=== PATIENT | female | born 1975 | race Caucasian/White ===

== ENCOUNTER 2018-08-14 11:57 | Emergency (ER) | payer SELFPAY ==
[~2018-08-14] VITALS: Ht 162.6 cm; Wt 88.5 kg
--- OUTSIDE RECORDS SUMMARY | 2018-08-14 12:11 | XMS REPORT | Continuity of Care Document ---
Author Organization Unknown Address Unknown Allergies There is no data. Medications There is no data. Problems There is no data. Procedures There is no data. Results There is no data. Encounters ACCT No. Visit Date/Time Discharge Status Pt. Type Provider Facility Loc./Unit Complaint [id number] 08/02/2018 15:00:00 08/02/2018 23:59:59 [facility] Outpatient [facility]
[2018-08-14] MEDS ORDERED: DIAZEPAM 5 MG (12:26)
[2018-08-14] MEDS ORDERED: HYDROCO (12:26)
[2018-08-14] MEDS ORDERED: APAP (12:26)
[2018-08-14] MEDS ORDERED: LACTATED RINGERS 1,000 ML IV ONE (12:48)
--- NOTE | 2018-08-14 12:55 | ED Abdominal Pain ---
General Chief Complaint: Abdominal/GI Problems Stated Complaint: RECTAL BLEEDING, ABD PAIN Nursing Triage Note: PT AMB TO RM 6 WITH COMPLAINT OF ABD PAIN AND BLOOD IN STOOL. PT STATES SHE STARTED HAVING BLOODY DIARRHEA LAST NIGHT. PT STATES SHE HAS DIVERTICULOSIS AND ATE A BAG OF POPCORN 2 DAYS AGO. STATES SHE WAS SENT BY [facility] IN [place] Sepsis Screen: No Definite Risk Source of Information: Patient, Family (mom) Exam Limitations: No Limitations History of Present Illness Date Seen by Provider: August 14, 2018 Time Seen by Provider: 12:35 Initial Comments Late last night she was awoken from sleep with severe pain 10 out of 10 in her periumbilical region. She has nausea with vomiting and had some bright red blood per rectum. She's never had that before. She denies a history of hemorrhoids or fissures or pain in her rectum. She said that she tried had a bowel movement it made the pain in the middle of her Worst. She did have a normal formed bowel movement yesterday. She had some soft stool this morning. She denies any fevers or chills. She like something for nausea but said the pain is tolerable as she lays here. Worse with movement, sitting up or straining have a bowel movement. She does take opiates and diazepam for her fibromyalgia. She has had a hysterectomy possibly a tubal ligation before that and 2 different surgeries to fix her periumbilical hernia with the last one being a year ago by Tamara Zhang. She had a large mesh placed at that time. She had her gallbladder out but still has her appendix. She's had a colonoscopy in the past and was told to she did not need another one for 15 years. She denies chest pain or shortness of breath. No history of anemia. Allergies and Home Medications Allergies Coded Allergies: oxycodone (Verified Adverse Reaction, Unknown, 08/14/18) PT STATES SHE SEES THINGS WHEN TAKING Patient Home Medication List Home Medication List Reviewed: Yes Review of Systems Review of Systems Constitutional: No chills, No diaphoresis EENTM: No Blurred Vision, No Double Vision Respiratory: Denies Cough, Denies Orthopnea Cardiovascular: Denies Chest Pain, Denies Lightheadedness Gastrointestinal: See HPI, Abdomen Distended, Abdominal Pain; Denies Constipated, Denies Diarrhea, Denies Difficulty Swallowing; Nausea, Vomiting Genitourinary: Denies Burning, Denies Discharge, Denies Drainage Musculoskeletal: No back pain, No joint pain Skin: No pruritus, No rash Psychiatric/Neurological: Denies Anxiety, Denies Depressed Past [id number]-[id number]-Xbbbrr Hx Patient Social History Alcohol Use: Denies Use Recreational Drug Use: No Smoking Status: Current Everyday Smoker Type Used: Cigarettes Recent Foreign Travel: No Contact w/Someone Who Travel: No Recent Infectious Disease Expo: No Recent Hopitalizations: No Immunizations Up To Date Tetanus Booster (TDap): Unknown Seasonal Allergies Seasonal Allergies: No Past Medical History Surgeries: Yes (HERNIA) Abdominal, Gallbladder Respiratory: No Cardiac: No Neurological: No Genitourinary: No Gastrointestinal: Yes Diverticulosis Musculoskeletal: Yes Fibromyalgia Endocrine: No HEENT: No Cancer: No Psychosocial: No Integumentary: No Blood Disorders: No Physical Exam Vital Signs Vital Signs - First Documented 08/14/18 12:02 Temp 97.7 Pulse 80 Resp 20 B/P (MAP) 143/91 (108) Pulse Ox 98 O2 Delivery Room Air Capillary Refill : Less Than 3 Seconds Height/Weight/BMI Height: 5'4.00" Weight: 195lbs. oz. 88.976399uh; BMI Method:Stated General Appearance: WD/WN, mild distress HEENT: PERRL/EOMI, pharynx normal Neck: full range of motion, normal inspection Respiratory: lungs clear, normal breath sounds, no respiratory distress, no accessory muscle use Cardiovascular: normal peripheral pulses, regular rate, rhythm Peripheral Pulses: 2+ Radial Pulses (R), 2+ Radial Pulses (L) Gastrointestinal: normal bowel sounds, soft, no organomegaly, guarding; No rebound; tenderness (. Periumbilical), other (no obvious hernia. No psoas sign or Rovsing sign or tenderness over McBurney's point) Extremities: normal range of motion, normal capillary refill Neurologic/Psychiatric: alert, normal mood/affect, oriented x 3 Skin: normal color, warm/dry Progress/Results/Core Measures Results/Orders Lab Results Laboratory Tests Test 08/14/18 12:13 08/14/18 12:21 Range/Units White Blood Count 12.4 H 4.3-11.0 10^3/uL Red Blood Count 5.08 4.35-5.85 10^6/uL Hemoglobin 15.2 11.5-16.0 G/DL Hematocrit 44 35-52 % Mean Corpuscular Volume 86 80-99 FL Mean Corpuscular Hemoglobin 30 25-34 PG Mean Corpuscular Hemoglobin Concent 35 32-36 G/DL Red Cell Distribution Width 14.0 10.0-14.5 % Platelet Count 160 130-400 10^3/uL Mean Platelet Volume 12.2 H 7.4-10.4 FL Neutrophils (%) (Auto) 80 H 42-75 % Lymphocytes (%) (Auto) 15 12-44 % Monocytes (%) (Auto) 4 0-12 % Eosinophils (%) (Auto) 1 0-10 % Basophils (%) (Auto) 0 0-10 % Neutrophils # (Auto) 10.0 H 1.8-7.8 X 10^3 Lymphocytes # (Auto) 1.8 1.0-4.0 X 10^3 Monocytes # (Auto) 0.5 0.0-1.0 X 10^3 Eosinophils # (Auto) 0.1 0.0-0.3 10^3/uL Basophils # (Auto) 0.0 0.0-0.1 10^3/uL Sodium Level 138 135-145 MMOL/L Potassium Level 4.0 3.6-5.0 MMOL/L Chloride Level 104 98-107 MMOL/L Carbon Dioxide Level 21 21-32 MMOL/L Anion Gap 13 5-14 MMOL/L Blood Urea Nitrogen 10 7-18 MG/DL Creatinine 0.64 0.60-1.30 MG/DL Estimat Glomerular Filtration Rate > 60 BUN/Creatinine Ratio 16 Glucose Level 93 70-105 MG/DL Calcium Level 9.6 8.5-10.1 MG/DL Corrected Calcium 9.2 8.5-10.1 MG/DL Magnesium Level 2.0 1.8-2.4 MG/DL Total Bilirubin 0.6 0.1-1.0 MG/DL Aspartate Amino Transf (AST/SGOT) 26 5-34 U/L Alanine Aminotransferase (ALT/SGPT) 36 0-55 U/L Alkaline Phosphatase 106 40-136 U/L C-Reactive Protein High Sensitivity 1.08 H 0.00-0.50 MG/DL Total Protein 7.6 6.4-8.2 GM/DL Albumin 4.5 3.2-4.5 GM/DL Lipase 47 8-78 U/L Urine Color YELLOW Urine Clarity CLEAR Urine pH 5 5-9 Urine Specific [place] 1.025 H 1.016-1.022 Urine Protein 3+ H NEGATIVE Urine Glucose (UA) NEGATIVE NEGATIVE Urine Ketones NEGATIVE NEGATIVE Urine Nitrite NEGATIVE NEGATIVE Urine Bilirubin NEGATIVE NEGATIVE Urine Urobilinogen NORMAL NORMAL MG/DL Urine Leukocyte Esterase 1+ H NEGATIVE Urine RBC (Auto) 4+ H NEGATIVE Urine RBC NONE /HPF Urine WBC NONE /HPF Urine Crystals NONE /LPF Urine Bacteria TRACE /HPF Urine Casts NONE /LPF Urine Mucus NEGATIVE /LPF Urine Culture Indicated NO Urine Opiates Screen NEGATIVE NEGATIVE Urine Oxycodone Screen NEGATIVE NEGATIVE Urine Methadone Screen NEGATIVE NEGATIVE Urine Propoxyphene Screen NEGATIVE NEGATIVE Urine Barbiturates Screen NEGATIVE NEGATIVE Ur Tricyclic Antidepressants Screen NEGATIVE NEGATIVE Urine Phencyclidine Screen NEGATIVE NEGATIVE Urine Amphetamines Screen NEGATIVE NEGATIVE Urine Methamphetamines Screen NEGATIVE NEGATIVE Urine Benzodiazepines Screen POSITIVE H NEGATIVE Urine Cocaine Screen NEGATIVE NEGATIVE Urine Cannabinoids Screen NEGATIVE NEGATIVE My Orders Orders - BANDAR,TATA J Ct Abdomen/Pelvis W (08/14/18 12:48) Cbc With Automated Diff (08/14/18 12:48) Comprehensive Metabolic Panel (08/14/18 12:48) Hs C Reactive Protein (08/14/18 12:48) Drug Screen Stat (Urine) (08/14/18 12:48) Lipase (08/14/18 12:48) Magnesium (08/14/18 12:48) Ua Culture If Indicated (08/14/18 12:48) Ed Iv/Invasive Line Start (08/14/18 12:48) Lactated Ringers (Lr 1000 Ml Iv Solution (08/14/18 12:48) Ondansetron Injection (Zofran Injectio (08/14/18 13:00) Ketorolac Injection (Toradol Injection) (08/14/18 13:00) Iohexol Injection (Omnipaque 350 Mg/Ml 1 (08/14/18 13:00) Received Contrast (Hold Metformin- Contr (08/14/18 13:00) Sodium Chloride Flush (Catheter Flush Sy (08/14/18 13:00) Iohexol Injection (Omnipaque 350 Mg/Ml 1 (08/14/18 13:30) Received Contrast (Hold Metformin- Contr (08/14/18 13:30) Sodium Chloride Flush (Catheter Flush Sy (08/14/18 13:30) Medications Given in ED Current Medications Medications Dose Ordered Sig/Octavio Route Start Time Stop Time Status Last Admin Dose Admin Iohexol 100 ml ONCE ONCE IV 08/14/18 13:00 08/14/18 13:01 DC 08/14/18 13:26 100 ML Ketorolac Tromethamine 30 mg ONCE ONCE IVP 08/14/18 13:00 08/14/18 13:01 DC 08/14/18 13:01 30 MG Lactated Ringer's 1,000 ml @ 0 mls/hr Q0M ONCE IV 08/14/18 12:48 08/14/18 12:50 DC 08/14/18 13:01 1,000 MLS/HR Ondansetron HCl 4 mg ONCE ONCE IVP 08/14/18 13:00 08/14/18 13:01 DC 08/14/18 13:01 4 MG Sodium Chloride 10 ml NEEDED PRN IV 08/14/18 13:00 08/14/18 13:27 10 ML Vital Signs/I&O 08/14/18 12:02 Temp 97.7 Pulse 80 Resp 20 B/P (MAP) 143/91 (108) Pulse Ox 98 O2 Delivery Room Air Blood Pressure Mean: 108 Progress Progress Note : Time: 13:07 Progress Note Toradol, Zofran, bag of fluids CT scan basic labs. Concern would be a possible incarceration related to adhesions versus gastroenteritis colitis versus other. Diagnostic Imaging Diagonstic Imaging: CT (with contrast IV) Plain Films/CT/US/NM/MRI: abdomen, pelvis Comments NAME: CLAIR PARHAM [facility] REC#: [id number] PT STATUS: REG ER : 1975 PHYSICIAN: TATA PORTILLO MD ADMIT DATE: 08/14/18/ER Draft Date of Exam:08/14/18 CT ABDOMEN/PELVIS W PROCEDURE: CT abdomen and pelvis with contrast. TECHNIQUE: Multiple contiguous axial images were obtained through the abdomen and pelvis after administration of intravenous contrast. Auto Exposure Controls were utilized during the CT exam to meet ALARA standards for radiation dose reduction. INDICATION: Abdominal pain with bloody stools and vomiting for 2 days. COMPARISON: None. DISCUSSION: The lung bases are well-aerated. Normal heart size. No pleural or pericardial fluid. Fatty infiltration of the liver is noted. The liver is enlarged measuring 21 cm. No liver mass identified. The gallbladder is surgically absent. The pancreas, stomach, spleen, and adrenal glands are unremarkable. No renal stone or hydronephrosis. No renal mass. The aorta is normal in caliber and contains extensive atherosclerotic plaque, advanced for age. Urinary bladder is decompressed. The uterus is surgically absent. Mild diverticulosis of the sigmoid colon with no secondary evidence for diverticulitis. The appendix is normal. No obstruction, pneumatosis, or pneumoperitoneum. No ascites or pathologically enlarged lymph nodes identified. Normal follicular activity is noted within the left ovary. No osseous abnormality identified. IMPRESSION: 1. Diverticulosis. 2. Fatty hepatomegaly. 3. Significant atherosclerotic plaque within the aorta, advanced for age. Dictated on workstation # [id number] Dict: 08/14/18 1340 Trans: 08/14/18 1346 [id number] Interpreted by: MARQUISE ROWE MD Electronically signed by: Reviewed: Reviewed by Me Departure Impression Primary Impression: Abdominal wall pain Additional Impressions: Gastroenteritis and colitis, viral Diverticulosis of colon with hemorrhage of large intestine Disposition: HOME, SELF-CARE Condition: Stable Departure-Patient Inst. Decision time for Depature: 13:45 Referrals: NO,LOCAL PHYSICIAN (PCP) Primary Care Physician Patient Instructions: Acute Abdomen (Belly Pain), Adult (DC) Add. Discharge Instructions: Your pain could be from a viral infection of gut, mild irritation of diverticulosis in your colon or even adhesions. Take Tylenol and Motrin use a heating pad. Follow-up Thursday with your primary care doctor for reevaluation and referral for a colonoscopy. If you developed a fever, intractable nausea vomiting that does not respond to Zofran 1 tablet every 6 hours then you can return to the ER. If you begin to have chest pain or shortness of breath please return to the nearest ER. All discharge instructions reviewed with patient and/or family. Voiced understanding. Scripts Ondansetron (Ondansetron Odt) 4 Mg Tab.rapdis 4 MG PO Q6H PRN for NAUSEA/VOMITING, #12 TAB 0 Refills Prov: TATA PORTILLO 08/14/18 TATA PORTILLO August 14, 2018 12:55
[2018-08-14] MEDS ORDERED: KETOROLAC 30 MG/ML VIAL IVP ONE (13:00)
[2018-08-14] MEDS ORDERED: ONDANSETRON 4 MG/2 ML (SDV) Z0FRAN IVP ONE (13:00)
[2018-08-14] MEDS ORDERED: HOLD METFORMIN - RECEIVED CONTRAST 20 ML VIAL IV SCH ×2 (13:00→13:30)
[2018-08-14] MEDS ORDERED: IOHEXOL 350 MG/ML 100 ML (OMNIPAQUE 350) VIAL IV ONE ×2 (13:00→13:30)
[2018-08-14] MEDS ORDERED: CATHETER FLUSH 10 ML SYR IV PRN ×2 (13:00→13:30)
[2018-08-14 13:07] LABS: BASOPHILS % (AUTO) 0 % (0-10); EOSINOPHILS # (AUTO) 0.1 10^3/uL (0.0-0.3); EOSINOPHILS % (AUTO) 1 % (0-10); HEMATOCRIT 44 % (35-52); HEMOGLOBIN 15.2 G/DL (11.5-16.0); LYMPHOCYTES # (AUTO) 1.8 X 10^3 (1.0-4.0); LYMPHOCYTES % (AUTO) 15 % (12-44); MEAN CORPUSCULAR HEMOGLOBIN 30 PG (25-34); MEAN CORPUSCULAR HGB CONC 35 G/DL (32-36); MEAN CORPUSCULAR VOLUME 86 FL (80-99); MEAN PLATELET VOLUME 12.2 FL (7.4-10.4); MONOCYTES # (AUTO) 0.5 X 10^3 (0.0-1.0); MONOCYTES % (AUTO) 4 % (0-12); NEUTROPHILS % (AUTO) 80 % (42-75); PLATELET COUNT 160 10^3/uL (130-400); WHITE BLOOD COUNT 12.4 10^3/uL (4.3-11.0)
[2018-08-14 13:07] LABS: BILIRUBIN,URINE NEGATIVE (NEGATIVE); CLARITY,URINE CLEAR; COLOR,URINE YELLOW; GLUCOSE, URINE (UA) NEGATIVE (NEGATIVE); KETONES,URINE NEGATIVE (NEGATIVE); LEUKOCYTE ESTERASE ,URINE 1+ (NEGATIVE); NITRITE,URINE NEGATIVE (NEGATIVE); PH,URINE 5 (5-9); PROTEIN,URINE 3+ (NEGATIVE); UROBILINOGEN,URINE NORMAL (NORMAL)
[2018-08-14 13:16] LABS: BACTERIA,URINE TRACE /HPF
[2018-08-14 13:21] LABS: ALANINE AMINOTRANSFERASE 36 U/L (0-55); ALBUMIN 4.5 GM/DL (3.2-4.5); ALKALINE PHOSPHATASE 106 U/L (40-136); BILIRUBIN,TOTAL 0.6 MG/DL (0.1-1.0); BUN/CREATININE RATIO 16; CALCIUM 9.6 MG/DL (8.5-10.1); CARBON DIOXIDE 21 MMOL/L (21-32); CHLORIDE 104 MMOL/L (98-107); CREATININE SERUM 0.64 MG/DL (0.60-1.30); GFR ESTIMATED > 60; GLUCOSE 93 MG/DL (70-105); LIPASE 47 U/L (8-78); SODIUM 138 MMOL/L (135-145); TOTAL PROTEIN 7.6 GM/DL (6.4-8.2)
[2018-08-14 13:24] LABS: AMPHETAMINE SCREEN, URINE NEGATIVE (NEGATIVE); BARBITURATE SCREEN URINE NEGATIVE (NEGATIVE); BENZODIAZEPINES SCREEN URINE POSITIVE (NEGATIVE); CANNABINOID SCREEN, URINE NEGATIVE (NEGATIVE); COCAINE SCREEN URINE NEGATIVE (NEGATIVE); METHADONE STAT NEGATIVE (NEGATIVE); METHAMPHETAMINE SCREEN URINE S NEGATIVE (NEGATIVE); OPIATE SCREEN URINE NEGATIVE (NEGATIVE); OXYCODONE STAT NEGATIVE (NEGATIVE); PROPOXYPHENE STAT NEGATIVE (NEGATIVE); TRICYCLIC ANTIDEPRESSANTS SCRE NEGATIVE (NEGATIVE)
--- NOTE | 2018-08-14 13:47 | Diagnostic Imaging Report ---
PROCEDURE: CT abdomen and pelvis with contrast. TECHNIQUE: Multiple contiguous axial images were obtained through the abdomen and pelvis after administration of intravenous contrast. Auto Exposure Controls were utilized during the CT exam to meet ALARA standards for radiation dose reduction. INDICATION: Abdominal pain with bloody stools and vomiting for 2 days. COMPARISON: None. DISCUSSION: The lung bases are well-aerated. Normal heart size. No pleural or pericardial fluid. Fatty infiltration of the liver is noted. The liver is enlarged measuring 21 cm. No liver mass identified. The gallbladder is surgically absent. The pancreas, stomach, spleen, and adrenal glands are unremarkable. No renal stone or hydronephrosis. No renal mass. The aorta is normal in caliber and contains extensive atherosclerotic plaque, advanced for age. Urinary bladder is decompressed. The uterus is surgically absent. Mild diverticulosis of the sigmoid colon with no secondary evidence for diverticulitis. The appendix is normal. No obstruction, pneumatosis, or pneumoperitoneum. No ascites or pathologically enlarged lymph nodes identified. Normal follicular activity is noted within the left ovary. No osseous abnormality identified. IMPRESSION: 1. Diverticulosis. 2. Fatty hepatomegaly. 3. Significant atherosclerotic plaque within the aorta, advanced for age. Dictated by: Dictated on workstation # [id number]
[2018-08-14] MEDS ORDERED: ONDA4TAB11 PO (14:06)
[2018-08-14 14:13] VITALS: BP 138/87
== END 2018-08-14 14:13 | disposition home or self-care (01) ==
LOC: ER 12:01
DX: A08.4 Viral intestinal infection, unspecified (principal); K57.30 Diverticulosis of large intestine without perforation or abscess without bleeding; M79.7 Fibromyalgia; F17.210 Nicotine dependence, cigarettes, uncomplicated; Z98.890 Other specified postprocedural states; Z87.19 Personal history of other diseases of the digestive system; Z90.89 Acquired absence of other organs; Z88.5 Allergy status to narcotic agent
CPT/HCPCS: 36415; 74177; 80053; 80306; 81000; 83690; 83735; 85025; 86141; 96374; 96375

== ENCOUNTER → 2018-09-29 | Outpatient (CLI) | payer SELFPAY ==
[~2018-09-29] MED LIST: APAP; CATHETER FLUSH 10 ML SYR IV PRN; DIAZEPAM 5 MG; HOLD METFORMIN - RECEIVED CONTRAST 20 ML VIAL IV SCH; HYDROCO; IOHEXOL 350 MG/ML 100 ML (OMNIPAQUE 350) VIAL IV ONE; NS 100 ML (IVPB) BAG IV ONE; ONDA4TAB11 PO
--- NOTE | 2018-09-29 09:31 | Diagnostic Imaging Report ---
PROCEDURE: CT neck soft tissue with contrast. TECHNIQUE: Multiple contiguous axial images were obtained through the neck after the administration of contrast. Auto Exposure Controls were utilized during the CT exam to meet ALARA standards for radiation dose reduction. INDICATION: A lump in the anterior neck. BB marker is placed at the area of palpable abnormality. This corresponds to the midline neck at the level of the thyroid. No underlying abnormality is seen. Only fatty tissue is identified. No discrete thyroid mass is detected. Posterior nasopharynx and oropharynx are unremarkable. Epiglottis and larynx are unremarkable. Bilateral submandibular and parotid glands appear to be symmetric bilaterally. Normal size jugulodigastric lymph nodes are seen bilaterally. No posterior cervical lymphadenopathy is seen. There is no fluid collection detected. IMPRESSION: Unremarkable CT soft tissue neck study. Dictated by: Dictated on workstation # [id number]
== END ==
LOC: RAD FS 08:07
PROVIDERS: ATTEND Otolaryngology Otolaryngology/Facial Plastic Surgery
DX: R22.1 Localized swelling, mass and lump, neck (principal)
CPT/HCPCS: 70491